=== PATIENT | female | born 2000 ===

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

== ENCOUNTER 2019-02-05 10:19 | Emergency (ER) | payer MEDICAID ==
[2019-02-05 10:20] VITALS: BMI 33.6
[2019-02-05 10:46] VITALS: BP 90/62; PULSE 86; RESP 18; TEMP 98.8; O2SAT 99
--- NOTE | 2019-02-05 12:04 | C.PDOC ---
History Of Present Illness 18 year old female presents to ED with complaint of sore throat, nausea, and lightheadedness for the past 3 days. Patient also complains of feeling tired. Patient denies nasal discharge, nasal congestion, fever, chills, and diaphoresis. Time Seen by Provider: 02/05/19 11:37 Chief Complaint (Nursing): Cough, Cold, Congestion History Per: Patient History/Exam Limitations: no limitations Onset/Duration Of Symptoms: Days (3) Current Symptoms Are (Timing): Still Present Location Of Pain: Throat Associated Symptoms: Sore Throat, Nausea, Other (lightheadedness). denies: Fever, Chills, Cough, Sputum, Sinus Drainage, Nasal Congestion, Vomiting, Diarrhea Past Medical History Reviewed: Historical Data, Nursing Documentation, Vital Signs Vital Signs: Last Vital Signs Temp 98.8 F 02/05/19 10:43 Pulse 86 02/05/19 10:43 Resp 18 02/05/19 10:43 BP 90/62 L 02/05/19 10:43 Pulse Ox 99 02/05/19 10:43 - Medical History PMH: Asthma Surgical History: Tonsillectomy - [facility] Procedures ARTIF RUPT MEMBRANES NEC (10/21/14) EPISIOTOMY (10/21/14) FAMILY THERAPY (07/30/13) MONITORING NOS (09/24/14) INDIVID PSYCHOTHERAP NEC (07/30/13) OTHER GROUP THERAPY (07/30/13) Family History: States: Unknown Family Hx - Social History Hx Tobacco Use: No Hx Alcohol Use: No Hx Substance Use: No - Immunization History Hx Tetanus Toxoid Vaccination: No Hx Influenza Vaccination: No Hx Pneumococcal Vaccination: No Review Of Systems Constitutional: Positive for: Other (tiredness). Negative for: Fever, Chills, Weakness ENT: Positive for: Throat Pain. Negative for: Nose Discharge, Nose Congestion Cardiovascular: Positive for: Light Headedness Gastrointestinal: Positive for: Nausea Neurological: Negative for: Weakness, Numbness, Dizziness Physical Exam - Physical Exam Appears: Well, Non-toxic, No Acute Distress Skin: Normal Color, Warm, Dry Head: Atraumatic, Normacephalic Throat: Erythema (pharyngeal erythema), No Exudate Neck: Normal ROM, Supple Lymphatic: No Other (lymphadenopathy ) Chest: Symmetrical, No Deformity Respiratory: No Accessory Muscle Use Neurological/Psych: Oriented x3, Normal Speech, Normal Cognition ED Course And Treatment O2 Sat by Pulse Oximetry: 99 (in RA) Progress Note: Patient given Amoxicillan PO. Urine POC ordered for patient. Patient is . Patient referred to clinic. Re-evaluation. Patient feels better. Discussed results and plan with patient who expresses understanding. All questions answered and there is agreement with the plan to discharge home with instructions. Patient stable for discharge. Return if symptoms persist or worsen. Disposition - Disposition Disposition: HOME/ ROUTINE Disposition Time: 12:01 Condition: STABLE Additional Instructions: Follow up with your PMD and OBGYN within 1-2 days. Return to ED if feel worse. Prescriptions: Amoxicillin [Amoxil 500 mg Cap] 500 mg PO Q8 #30 cap Multivit/Folic Acid/I [ Plus] 1 tab PO DAILY #30 tab Instructions: Sore Throat, Adult (DC), Symptoms Forms: [facility] (Canadian), Work Excuse - Clinical Impression Clinical Impression: Pharyngitis, test positive - PA / [employer] / Resident Statement MD/DO has reviewed & agrees with the documentation as recorded. (Katelyn Alvarado) - Scribe Statement The provider has reviewed the documentation as recorded by the Scribe (Katelyn Alvarado) All medical record entries made by the Scribe were at my direction and personally dictated by me. I have reviewed the chart and agree that the record accurately reflects my personal performance of the history, physical exam, medical decision making, and the department course for this patient. I have also personally directed, reviewed, and agree with the discharge instructions and disposition.
== END 2019-02-05 12:21 | disposition home or self-care (01) ==
LOC: C.ER 10:19
DX: J02.9 Acute pharyngitis, unspecified (principal); Z32.01 Encounter for pregnancy test, result positive